=== PATIENT | female | born 1970 | race Caucasian/White ===

== ENCOUNTER 2023-08-09 05:51 | Day surgery (SDC) | payer SELFPAY, OTHER ==
--- NOTE | 2023-08-08 17:23 | PCM.HP.BLA ---
History and Physical Date of Admission: 08/09/23 Pre-Op History and Physical ? HPI: The patient is a 52 year old female presenting for pre-operative visit. She is scheduled for laparoscopic BSO, for ER + breast cancer on 08/09/23. Procedure discussed along with risks, benefits and complications. Other alternatives discussed for management. Consent form signed? Yes. ? ? PAST MEDICAL HISTORY PAST MEDICAL HISTORY Diagnosis Date ? Breast cancer (HCC) 10/31/2022 ? left breast ? ? PAST SURGICAL HISTORY PAST SURGICAL HISTORY Procedure Laterality Date ? PAST SURGICAL HISTORY OF Bilateral 2013 ? vericose veins ? PAST SURGICAL HISTORY OF ? 02/2009 ? tubal ligation ? PAST SURGICAL HISTORY OF ? 1981 ? dnc ? PAST SURGICAL HISTORY OF Bilateral 11/10/2022 ? mastectomy ? ? ? CURRENT MEDICATIONS Current Outpatient Medications Medication Sig Dispense Refill ? OTC PRODUCT Mik Vieyra Supplement: Take one tablet by mouth three times daily. ? ? ? anastrozole (ARIMIDEX) 1 mg tablet Take 1 tablet by mouth once daily. 30 tablet 5 ? OTC PRODUCT Take 1 Tablespoonful by mouth once daily. sorgum molasses ? ? ? OTC PRODUCT Take 3 fluid ounces by mouth three times daily. Esiac tea ? ? ? CALCIUM-MAG OXIDE-VITAMIN D3 ORAL Take 1 tablet by mouth once daily. ? ? ? mecobalamin (B12 ACTIVE ORAL) Take 1 tablet by mouth once daily. ? ? ? ferrous sulfate (IRON ORAL) Take 1 tablet by mouth once daily. ? ? ? thymol/chlorophyllin (CHLOROPHYLL ORAL) Take 1 Tablespoonful by mouth once daily. ? ? ? No current facility-administered medications for this visit. ? ? ALLERGIES: Patient has no known allergies. ? PERSONAL HISTORY: SOCIAL HISTORY Social History ? Tobacco Use ? Smoking status: Never ? ? Passive exposure: Past ? Smokeless tobacco: Never Vaping Use ? Vaping Use: Never used Substance Use Topics ? Alcohol use: Not Currently ? Drug use: Never ? FAMILY HISTORY: FAMILY HISTORY FAMILY HISTORY Problem Relation Age of Onset ? other (hysterectomy') Mother ? ? Hypertension Father ? ? Heart Father ? ? open heart surgery/defibrillator ? Hypertension Sister ? ? Hypertension Brother ? ? other (drowning) Brother ? ? Colon Cancer Maternal Grandmother ? ? ? REVIEW OF SYMPTOMS: negative except as noted above PHYSICAL EXAMINATION: ? VITALS: Blood pressure 116/74, weight 146 lb (66.2 kg), last menstrual period 02/10/2023. ? GENERAL: The patient is well nourished, well hydrated in no acute distress. , The patient is oriented to time, place, and person. NECK: full range of motion LUNGS: Clear to auscultation bilaterally. no wheezes, rhonchi or rales HEART: Regular rate and rhythm, Normal heart sounds, and No murmurs or gallops ? IMPRESSION: 52yo with personal history of ER + breast cancer Oncology recommending BSO ? PLAN: Laparoscopic BSO ? Pt has been counseled on risks/benefits and alternatives of surgery including but not limited to anesthesia, bleeding, infection, injury to pelvic structures including bowel, bladder, ureters and vessels. Pt wishes to proceed with surgery at this time. Reviewed surgical menopause with patient and what to expect. Risk of transfusion reviewed. ? I have reviewed and updated past medical and surgical history, medications and allergies Brit Landers MD Office Visit on 07/10/2023 Office Visit on 07/10/2023 Note shared with patient
[2023-08-09] VITALS (7 sets, daily range): BP systolic 110–138; BP diastolic 68–94; PULSE 52–74; RESP 16–18; TEMP 36.4–36.8; O2SAT 96–100; BMI 27.3
--- NOTE | 2023-08-09 | FALS_PTH ---
PATIENT: TURNER SERRATO LOC: [facility] [place] U#:[id number] AGE/SX: 52/F ROOM: RE08/09/[address]: Dr. Brit King, MDDOB: 1970 BED: DIS: 08/09/2023 SPEC #: [id number] RECD: 08/09/23 12:29 STATUS: MIRIAM ALAYAN #: [id number] JUAN: 08/09/23 00:[address]: Brit King DEPT: SURGICAL PATHOLOGY RECD BY: Shani Culver ENTERED: 08/09/23 12:31 SP TYPE: FALL TUBES OTHR DR: Dr. Uriel Zeepda MD Tissues: Ovary, NOS Procedures: Surgery Specimen Level IV HEADER OPERATION: Laparoscopic salpingo-oophorectomy PRE-OP DIAGNOSIS: Breast cancer TISSUE SUBMITTED: Bilateral ovaries and tubes MICROSCOPIC DIAGNOSIS Bilateral fallopian tubes and ovaries, bilateral salpingo-oophorectomy: Bilateral fallopian tubes - focal hematosalpinx. Bilateral ovaries - physiologic follicular cysts and mesothelial inclusion cyst. SJ:cachorro 08/10/2023 MICROSCOPIC DESCRIPTION Slides are reviewed. GROSS DESCRIPTION Received in fixative is one container labeled with the patient's name and designated bilateral ovaries and tubes. The specimen consists of bilateral fallopian tubes and ovaries. The fallopian tubes and ovaries are not identified as right or left. One fallopian tube measures 7.5 cm in length and 0.5 cm in diameter. Two Filshie clips are noted in the middle and appear intact. Fimbrial end is identified. No tubo-ovarian adhesions are noted. Proximal end of fallopian tube shows dilated lumen filled with bloody fluid. Adjacent soft to cystic ovary measures 3.5 x 2.5 x 1.5 cm. Sections reveal multiple cysts filled with clear to hemorrhagic fluid. The largest cyst measures 1.5 cm in greatest dimension. The second fallopian tube measures 4.5 cm in length and similar appearance to first one. Two Filshie clips are also identified in the middle consistent with previous tubal occlusion. Sections reveal mildly dilated lumen filled with bloody fluid in the proximal portion of the fallopian tube. Soft to cystic adjacent second ovary measures 2.5 x 2.5 x 1.5 cm. Sections reveal multiple cysts filled with clear to hemorrhagic fluid. Largest cyst measures 1.2 cm in greatest dimension. Measurement Department Chief Clerk sections are submitted in six cassettes as follows: 1-3 - one fallopian tube and ovary (1 containing fallopian tube, 2 & 3 ovary), 4-6 - second fallopian tube and ovary (4 - fallopian tube, 5 & 6 - ovary). / SITA:cachorro 08/09/2023 TC:5 CPT: 34596 x2
[2023-08-09] MEDS: Lactated Ringers 1,000 ML 15 ML IV ×2 (06:45→11:00)
[2023-08-09 07:23] LABS: AST(SGOT) 9 U/L (15-37); Alanine Aminotransfer ALT/SGPT 20 U/L (13-56); Albumin, Serum 3.9 g/dL (3.2-5.0); Alkaline Phosphatase 59 U/L (45-117); Bilirubin, Direct 0.12 mg/dL (0.00-0.30); Globulin 3.1 g/dL (2.2-4.2)
[2023-08-09 07:24] LABS: International Normalized Ratio 0.9; Prothrombin Time (Protime)PT. 12.5 SECONDS (11.7-14.9)
[2023-08-09 07:25] LABS: Partial Thromboplast Time 33.9 Seconds (24.1-36.2)
--- NOTE | 2023-08-09 09:52 | DCINST_ITS ---
Discharge Instructions Diet Discharge Diet: No restrictions Activity May resume sexual activity in: 2 weeks Lifting Restrictions: 20-25 lbs Dressing / Incision Call your doctor if your incision/area has: Continuous Slow Oozing, Sudden Increased Bleeding, Increased Pain/ Swelling, Increased Redness, Foul Smelling Discharge and Swelling at the incision site Call your doctor if you observe: Fever of 101 or Higher, Inability to urinate, Inability to have a bowel movement, Using more than 1 pad per hour and Uncontrolled pain Additional Dressing/Incision Instructions:: You have skin glue over your incision sites, do not pick off. You may shower and let the soap and water run over the incision sites and dab dry. Follow Up Care Please Follow Up With: Brit King MD When: 1-2 weeks post OP if you need an appointment please call [phone] Test Results: Test results from this visit will be discussed in further detail at your follow- up appointment, if applicable. Discharge Plan Admission Attending Provider: Brit King Primary Care Provider: Uriel Zepeda Discharge Orders/Prescriptions Prescriptions: No Action anastrozole 1 mg tablet 1 mg PO DAILY Patient Comments: TAKE ONE TABLET BY MOUTH ONCE DAILY SORGUM MOLASSES 1 tbsp Chlorophyll 0.5 tbsp Foltrate 0.5-1 mg tablet 1 tab PO DAILY calcium carbonate-vitamin D3 [Calcium 600 + D(3)] 600 mg-5 mcg (200 unit) tablet 1 tab PO DAILY cholecalciferol (vitamin D3) [Vitamin D3] 25 mcg (1,000 unit) capsule 25 mcg PO DAILY AND WINTER 3 TAB Disposition Disposition (needs filled in before D/C Order can be placed): Home, Self Care
--- NOTE | 2023-08-09 09:52 | PCM.OPRPT ---
Report of Operation Date of Procedure: 08/09/23 Pre-Operative Diagnosis: ER+ breast cancer, Prophylactic BSO Post-Operative Diagnosis: SAME Surgery/Procedure Performed:: Laparoscopic BSO Description of Surgical Findings:: Normal tubes and ovaries bilaterally. Filshie clips present on tubes. uterus normal. minor bladder adhesions noted. Surgeon: Brit King research administrator: Nancy Diaz Type of Anesthesia: General and Local Special Medications: 0.5% marcaine Specimen's removed: Bilateral fallopian tubes and ovaries Drains: none Estimated Blood Loss (mL): 10 Fluids Replaced: 1000 Description of Procedure: After informed consent was obtained patient was taken to the operating room she was placed in supine position she was given anesthesia. She was then placed in the [facility] stirrups and she was prepped and draped in normal sterile fashion. Bladder was drained prior to the start of procedure approximately 200cc of clear yellow urine was expelled. At this time attention was turned to the vaginal portion where weighted speculum placed at posterior fornix vagina single-tooth tenaculum was used to gently grasp the internal the cervix. uterus was gently sounded to approximately 8cm. Uterine manipulator was placed without difficulty. Legs then placed in parallel with the abdomen the tenaculum and the weighted speculum were removed. 2 towel clamps were placed inferior to umbilicus. After Marcaine was injected infraumbilically a small incision was made and a 5 mm trocar was placed under direct visualization. CO2 gas was used to insufflate the intra-abdominal cavity. Upon inspection no gross abnormalities uterus tubes and ovaries appeared to be normal. Filshie clips were noted on both tubes. At this time then the LLQ port was placed again Marcaine was injected small incision was made a knife and the 5 mm trocar was placed. this was repeated on right side. At this time then tubes were traced back to the fimbriated ends. Ligasure was used to coagulate and ligate along IP ligament, uterovarian and the mesosalpynx bilaterally until ovaries and tubes removed completely. Good hemostasis was appreciated. The umbilical incision was extended to 10mm port and endocatch bag placed- specimens collected and removed. The marvin lloyd was then used to closed fascia of umbilical incision using 0-vicryl sutre. At this time procedure was deemed complete successful. The gas was desufflated on from the intra-abdominal cavity. The trochars were removed. Skin was closed using 4-0 Monocryl in a subcutaneous fashion. Dermabond glue was placed. Instrument lap and needle counts were correct ?2. The uterine manipulator was removed. Vaginal sweep was performed it was negative. There were no complications anticipated normal postoperative course for this patient. Dr. Diaz assisted in manipulation of camera and retraction of tissue. Grafts/Implants Used: none Procedure Start Time: 10:05 Procedure Stop Time: 10:34 Complications none Admit VTE Documentation VTE Present on Admission: Yes VTE Mechan Device Prophylaxis: SCD's VTE Pharm Prophylaxis ordered?: No Reason prophylaxis not ordered:: Procedure Not Indicated
[2023-08-09] MEDS: Bupivacaine Mpf 0.5% 30 ML VIAL (10:05)
== END 2023-08-09 15:02 | disposition home or self-care (01) ==
LOC: SDC 05:55 → AC 05:56
PROVIDERS: Anesthesiology; PCP Family Medicine; Referring Provider Obstetrics & Gynecology; Visit Provider Obstetrics & Gynecology
PROC: (CPT 58661; principal; 2023-08-09 09:35)
DX: N83.01 Follicular cyst of right ovary (principal); N83.02 Follicular cyst of left ovary; Z85.3 Personal history of malignant neoplasm of breast; Z17.0 Estrogen receptor positive status [ER+]; Z90.13 Acquired absence of bilateral breasts and nipples; Z98.51 Tubal ligation status; N32.89 Other specified disorders of bladder
CPT/HCPCS: 58661; 00840; 80076; 85610; 85730; 88305; J7120; J2405